=== PATIENT | female | born 1970 | race Asian ===

== ENCOUNTER 2017-01-08 16:29 | Emergency (ER) | payer OTHER ==
[~2017-01-08] VITALS: Wt 90.6 kg
[~2017-01-08 16:29] MED LIST: ALBU8.5H3 INH; IBUP-1542 PO; PRED20TA PO
[2017-01-08] MEDS ORDERED: ALBUTEROL 0.5% (NEB) 2.5 MG/0.5 ML AMP HHN STA (16:45)
[2017-01-08] MEDS ORDERED: predniSONE 20 MG TAB PO ONE (17:00)
[2017-01-08] MEDS ORDERED: IPRATROPIUM (NEB) 0.5 MG/2.5 ML AMP HHN ONE (17:00)
[2017-01-08] MEDS ORDERED: ALBU18HF INHALATION (17:24)
[2017-01-08] MEDS ORDERED: PRED20TA PO (17:24)
[2017-01-08] MEDS ORDERED: AZIT250T94 PO (17:24)
--- NOTE | 2017-01-08 17:30 | ERD ---
ER Documentation Chief Complaint Date/Time DATE: 01/08/17 TIME: 17:29 Chief Complaint COUGH AND CONGESTION FOR 2 DAYS WITH MILD SOB. NO FEVERS. RUNNY NOSE. HPI This 46-year-old female presents with cough congestion for last 2 days. She has no fevers. She is slightly productive. She has had a history of wheezing with URIs in the past. She denies chest pain, vomiting, abdominal pain . ROS All systems reviewed and are negative except as per history of present illness. Medications Home Meds Active Scripts Azithromycin* (Zithromax*) 250 Mg Tablet, 250 MG PO .ZPACK DIRECTED, #6 TAB TAKE 500 MG (2 TABS) THE FIRST DAY THEN 250 MG (1 TAB) DAYS 2-5 Prov:EFRAIN OVALLES MD 01/08/17 Albuterol Sulfate* (Ventolin HFA*) 18 Gm Hfa.aer.ad, 2 PUFF INHALATION Q4H, #1 INHALER Prov:EFRAIN OVALLES MD 01/08/17 Prednisone* (Prednisone*) 20 Mg Tab, 40 MG PO DAILY for 4 Days, TAB Start January 09, 2017 Prov:EFRAIN OVALLES MD 01/08/17 Prednisone* (Prednisone*) 20 Mg Tab, 40 MG PO DAILY for 4 Days, TAB Prov:JANES VELEZ PA-C 10/20/16 Albuterol Sulfate* (Proair HFA*) 8.5 Gm Hfa.aer.ad, 2 PUFF INH Q4, #1 INHALER Prov:JANES VELEZ PA-C 10/20/16 Ibuprofen* (Motrin*) 600 Mg Tab, 600 MG PO DAILY Y for PAIN AND OR ELEVATED TEMP , #30 Take once daily the first 5 days of menstural cycle. Prov:DEB SANTO NP 07/05/15 Allergies Allergies: Coded Allergies: No Known Allergy (Unverified , 10/20/16) PMhx/Soc History of Surgery: No Anesthesia Reaction: No Hx Neurological Disorder: No Hx Respiratory Disorders: No Hx Cardiac Disorders: No Hx Psychiatric Problems: No Hx Miscellaneous Medical Probl: Yes (uterine fibroids) Hx Alcohol Use: No Hx Substance Use: No Hx Tobacco Use: No Smoking Status: Never smoker Physical Exam Vitals Vital Signs Date Time Temp Pulse Resp B/P Pulse Ox O2 Delivery O2 Flow Rate FiO2 01/08/17 16:30 98.2 100 22 160/85 96 Physical Exam Const: [] Alert, [id number] per Head: Atraumatic Eyes: Normal Conjunctiva ENT: Normal External Ears, Nose and Mouth. Neck: Full range of motion..~ No meningismus. Resp: Clear to auscultation bilaterally. Scattered coarse breath sounds and wheezing without rales or retractions appreciated. Cardio: Regular rate and rhythm, no murmurs Abd: Soft, non tender, non distended. Normal bowel sounds Skin: No petechiae or rashes Back: No midline or flank tenderness Ext: No cyanosis, or edema Neur: Awake and alert Psych: Normal Mood and Affect Results 24 hrs Current Medications Medications (Trade) Dose Ordered Sig/Cheryl Route PRN Reason Start Time Stop Time Status Last Admin Dose Admin Albuterol (Proventil 0.5% (Neb)) 5 mg ONCE STAT [facility] 01/08/17 16:45 01/08/17 16:49 DC 01/08/17 17:18 Ipratropium [place] (Atrovent 0.02% (Neb)) 0.5 mg ONCE ONCE [facility] 01/08/17 17:00 01/08/17 17:01 DC 01/08/17 17:17 Prednisone (Prednisone) 60 mg ONCE ONCE PO 01/08/17 17:00 01/08/17 17:01 DC 01/08/17 17:04 Procedures/MDM Patient was given albuterol Atrovent treatment 1. Patient persistent mild coarse breath sounds on serial exam. Patient has no retractions or rales on saturating 97%. Patient has signs and symptoms of acute URI with reactive airway disease. She has no signs to suggest pneumonia, risk factors or signs or symptoms of pulmonary rhythm, acute coronary syndrome, respiratory distress. She will treated with a course of prednisone, Ventolin and Zithromax at home. The patient was stable with no new complaints during the ER course. Clinically , there is no current evidence to suggest meningitis, sepsis, acute abdomen, pneumonia, acute coronary syndrome, pulmonary embolism, or any other emergent condition appearing to require further evaluation or hospitalization. The patient should certainly return for any new or worsening symptoms per the aftercare instructions. They should otherwise follow-up with her primary care doctor for reevaluation this week. Departure Diagnosis: Primary Impression: Wheezing Additional Impression: URI (upper respiratory infection) URI type: unspecified URI Qualified Code: J06.9 - Upper respiratory tract infection, unspecified type Condition: Stable Patient Instructions: Bronchitis With Wheezing (Adult) Additional Instructions: Recheck for new or worsening symptoms or primary care doctor. EFRAIN OVALLES MD Jan 08, 2017 17:30
== END 2017-01-08 17:49 | disposition home or self-care (01) ==
LOC: FTE 16:29
DX: R06.2 Wheezing (principal); J06.9 Acute upper respiratory infection, unspecified
CPT/HCPCS: 94664; J7512; Z7502; Z7610

== ENCOUNTER 2017-10-11 15:33 | Emergency (ER) | payer OTHER ==
[~2017-10-11] VITALS: Wt 88.9 kg
[~2017-10-11 15:33] MED LIST changes: +ALBU18HF INHALATION; +AZIT250T94 PO
[2017-10-11 15:54] VITALS: Wt 88.9 kg
[2017-10-11] MEDS ORDERED: ALBUTEROL 0.083% (NEB) 2.5 MG/3 ML AMP HHN STA ×2 (17:05→18:22)
[2017-10-11] MEDS ORDERED: IPRATROPIUM (NEB) 0.5 MG/2.5 ML AMP HHN ONE (17:30)
[2017-10-11] MEDS ORDERED: METHYLPREDNISOLONE 125 MG INJ IM ONE (17:30)
--- NOTE | 2017-10-11 18:09 | RADRPT ---
PROCEDURE: Chest x-ray CLINICAL INDICATION: Shortness of breath TECHNIQUE: Chest single view COMPARISON: 10/20/2016 FINDINGS: The heart is normal in size. The pulmonary vessels are normal in caliber. The lungs are clear. Th e costophrenic angles are sharp. The visualized bony thorax is unremarkable. IMPRESSION: No acute cardiopulmonary disease. RPTAT: HH .Gentry Gold MD, MD Date Time Electronically viewed and signed by .Gentry Gold MD, on 10/11/2017 18:08 .W/
[2017-10-11] MEDS ORDERED: ALBU8.5H3 INH (19:00)
[2017-10-11] MEDS ORDERED: PRED20TA PO (19:00)
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
== END 2017-10-11 19:48 | disposition home or self-care (01) ==
LOC: FTE 15:33
DX: J06.9 Acute upper respiratory infection, unspecified (principal); J45.901 Unspecified asthma with (acute) exacerbation
CPT/HCPCS: 71010; 94640; 94664; 96372; J2930; Z7502; Z7610

== ENCOUNTER 2017-12-15 15:47 | Emergency (ER) | END 2017-12-15 19:06 | disposition home or self-care (01) ==